=== PATIENT | female | born 1950 | race Caucasian/White ===

== ENCOUNTER 2017-05-31 08:38 | Emergency (ER) | payer SELFPAY ==
[2017-05-31] MEDS ORDERED: NORCO 5/325 PO ONE (10:43)
[2017-05-31] MEDS ORDERED: FLEXERIL PO ONE (10:43)
[2017-05-31 11:53] VITALS: BP 155/77
--- NOTE | 2017-05-31 12:41 | XRay Report ---
RIGHT HIP, 2 views: The bony architecture is intact without evidence of fracture or dislocation. No significant soft tissue abnormality is seen. IMPRESSION: Normal right hip.
--- NOTE | 2017-05-31 12:42 | XRay Report ---
RIGHT SHOULDER: Routine views demonstrate normal bony and soft tissue structures with normal joint alignment of the shoulder. IMPRESSION: Unremarkable right shoulder.
== END 2017-05-31 13:13 | disposition home or self-care (01) ==
LOC: ED 08:38
DX: M25.511 Pain in right shoulder (principal); M25.551 Pain in right hip; Z87.891 Personal history of nicotine dependence; W01.0XXA Fall on same level from slipping, tripping and stumbling without subsequent striking against object, initial encounter; Y93.89 Activity, other specified; Y92.89 Other specified places as the place of occurrence of the external cause; Y99.8 Other external cause status
CPT/HCPCS: 99283